=== PATIENT | male | born 1945 | race Native Hawaiian/Other Pacific Islander ===

== ENCOUNTER 2023-03-28 14:40 | Emergency (ER) | payer OTHER ==
[~2023-03-28] VITALS: Ht 172.7 cm; Wt 77.4 kg
[2023-03-28 14:40] VITALS: BP 123/51; TEMP 99.1
[2023-03-28] MEDS ORDERED: WELCHOL625 MG PO (21:00)
[2023-03-28] MEDS ORDERED: AMLODIPINE BESYLATE PO (21:01)
[2023-03-28] MEDS ORDERED: DEXL60CA4 PO (21:01)
[2023-03-28] MEDS ORDERED: ELIQUIS5 MG PO (21:01)
[2023-03-28] MEDS ORDERED: METFTAB PO (21:02)
[2023-03-28] MEDS ORDERED: FENOFIBRATE160 MG PO (21:02)
[2023-03-28] MEDS ORDERED: COZAAR100 MG PO (21:02)
[2023-03-28] MEDS ORDERED: PIOG30TA PO (21:03)
[2023-03-28] MEDS ORDERED: SERT100T PO (21:03)
[2023-03-28] MEDS ORDERED: METO25TA4 PO (21:03)
[2023-03-28] MEDS ORDERED: MONT10TA PO (21:03)
[2023-03-28] MEDS ORDERED: SIMV40TA57 PO (21:04)
[2023-03-28] MEDS ORDERED: TAMS0.4C PO (21:05)
[2023-03-28] MEDS ORDERED: EUTHYROX88 MCG PO (21:05)
[2023-03-28] MEDS ORDERED: CYCLOBENZAPRINE5 MG PO (21:06)
[2023-03-28 23:50] VITALS: BP 145/65; TEMP 97.5; Ht 172.7 cm; Wt 77.4 kg
[2023-03-29] VITALS: BP 145/62; TEMP 97.9
[2023-03-29 04:00] VITALS: BP 134/60; TEMP 97.7
[2023-03-29 05:09] LABS: PLATELET COUNT 246 K/uL (142-355)
[2023-03-29 05:31] LABS: POTASSIUM 4.3 mmol/L (3.6-5.2)
[2023-03-29 08:00] VITALS: BP 114/95; TEMP 98.3
[2023-03-29 11:51] VITALS: BP 114/95; TEMP 98.3
[2023-03-29 16:00] VITALS: BP 212/118; TEMP 97.9
== END 2023-03-29 17:13 | disposition home or self-care (01) ==
LOC: ED 14:40 → MED/SURG 18:01
PROVIDERS: ADMIT Family Medicine; ATTEND Family Medicine
DX: S27.329A Contusion of lung, unspecified, initial encounter (principal); S06.0XAA Concussion with loss of consciousness status unknown, initial encounter; S00.81XA Abrasion of other part of head, initial encounter; V89.2XXA Person injured in unspecified motor-vehicle accident, traffic, initial encounter; Y92.89 Other specified places as the place of occurrence of the external cause; D64.89 Other specified anemias; I48.91 Unspecified atrial fibrillation; I25.10 Atherosclerotic heart disease of native coronary artery without angina pectoris; Z79.01 Long term (current) use of anticoagulants; I10 Essential (primary) hypertension; R06.02 Shortness of breath
CPT/HCPCS: 36415; 80053; 82550; 82948; 84484; 85027; 93005; 94760; 96361; 96374; 99221; 99283; G0378; J3490